=== PATIENT | male | born 1970 | race Two or more races ===

== ENCOUNTER → 2024-03-18 | Day surgery (SDC) | payer MEDICAID ==
[~2024-03-18] VITALS: Ht 185.4 cm; Wt 139.7 kg
[~2024-03-18] MED LIST: ALBUAER3 IN; ATOR20TA PO; DAPA1TAB4 PO; FLUT500M2 IN; HYDR-4924 PO; INSU1INJ19 SC; LEVO50CA3 PO; LOSA-533 PO; ONDANSETRON HCL 4 MG/2 ML VIAL ONE; PROPOFOL 10 MG/ML 20 ML IV ONE; SEMA2INJ3 SC; SERT-160 PO
[2024-03-18 09:29] VITALS: PULSE 78; RESP 12; TEMP 99.5; O2SAT 96
[2024-03-18 09:55] VITALS: BP 117/82; PULSE 75; RESP 12; O2SAT 95
== END | disposition home or self-care (01) ==
LOC: GI 07:20
PROVIDERS: ATTEND Internal Medicine Gastroenterology
DX: Z12.11 Encounter for screening for malignant neoplasm of colon (principal); D12.4 Benign neoplasm of descending colon; D12.5 Benign neoplasm of sigmoid colon; D12.3 Benign neoplasm of transverse colon; D12.8 Benign neoplasm of rectum; K57.30 Diverticulosis of large intestine without perforation or abscess without bleeding; K21.9 Gastro-esophageal reflux disease without esophagitis; I10 Essential (primary) hypertension; E11.9 Type 2 diabetes mellitus without complications; E03.9 Hypothyroidism, unspecified; J44.9 Chronic obstructive pulmonary disease, unspecified; F41.9 Anxiety disorder, unspecified; G89.29 Other chronic pain; G47.33 Obstructive sleep apnea (adult) (pediatric); E66.01 Morbid (severe) obesity due to excess calories; Z68.41 Body mass index [BMI] 40.0-44.9, adult; Z79.890 Hormone replacement therapy; Z79.899 Other long term (current) drug therapy; Z90.49 Acquired absence of other specified parts of digestive tract; Z98.890 Other specified postprocedural states
CPT/HCPCS: 45380; 45385; 82962; 88305; J2405; J2704; J7030